=== PATIENT | female | born 1975 | race Caucasian/White ===

== ENCOUNTER 2018-06-04 12:05 | Emergency (ER) | payer OTHER ==
[~2018-06-04] VITALS: Ht 172.7 cm; Wt 90.7 kg
[~2018-06-04 12:05] MED LIST: AMOX TR-K CLV1 EACH PO; ATIVAN2 MG PO; AUGMENTIN 875-1 EACH PO; BACTRIM DS TAB1 EACH PO; CALCIUM500 M1 PO; IBUPROFEN600 MG PO; MAPAP325 MG PO; MULTI VITAMIN1 EACH PO; NICOTINE PATCH1 EAC3 TD; OXYCODON-ACETA1 EAC2 PO; OXYCODONE-ACET1 EAC1 PO; WELLBUTRIN SR150 MG PO; [UNRECOGNIZED DRUG - CODE] PO
[2018-06-04] MEDS ORDERED: KETOROLAC TROME10 MG PO (14:18)
== END 2018-06-04 14:30 | disposition home or self-care (01) ==
LOC: ED 12:05
DX: M94.0 Chondrocostal junction syndrome [Tietze] (principal); F17.200 Nicotine dependence, unspecified, uncomplicated; Z79.891 Long term (current) use of opiate analgesic
CPT/HCPCS: 71101; 96372; 99283; J1885

== ENCOUNTER 2025-04-17 09:38 | Day surgery (SDC) | payer OTHER ==
[~2025-04-17] VITALS: Ht 172.7 cm; Wt 118.0 kg
[~2025-04-17 09:38] MED LIST changes: +IBLOOD GLUCOSE TEST STRIP 1 EA TEST VI PRN; +KETOROLAC TROME10 MG PO; +LACTATED RINGER'S 1,000 ML IV SCH; +LIDOCAINE HCL 1% 5 ML SDV INJ ONE; +PHENTERMINE HCL30 MG PO; +VARENICLINE1 EACH PO
[2025-04-17 10:10] VITALS: BP 112/64
[2025-04-17] MEDS ORDERED: LIDOCAINE HCL 2% 5 ML SDV ONE (11:01)
[2025-04-17] MEDS ORDERED: KETAMINE in NS 50 MG/5 ML SYR ONE (11:20)
--- NOTE | 2025-04-17 11:48 | NUR ---
04/17/25 1148 Radha Corley 1137-PATIENT ARRIVED TO PACU ON 4L NC RR EVEN. PATIENT LAYING LEFT LATERAL ABDOMEN SOFT. REACTIVE TO VERBAL STIMULI PATIENT TALKING. SR. ABDOMEN SOFT IVF INFUSING. 1145-PATIENT AROUSING ASKING "IS BP OK" ALSO STATING " IM HUNGRY" HOB ELEVATED ON RA 95% RR EVEN. ENCOURAGED TO PASS GAS.
[2025-04-17 12:19] VITALS: BP 121/78
--- NOTE | 2025-04-18 09:50 | OR ---
[facility] [address] [place], [place] [address] Signed DATE OF OPERATION: 04/17/2025 SURGEON: Harman Batres DO PREOPERATIVE DIAGNOSIS: Colon cancer screening. POSTOPERATIVE DIAGNOSIS: Colon cancer screening with polyp at 25 cm. PROCEDURE PERFORMED: Colonoscopy with polypectomy at 25 cm. ANESTHESIA: IV sedation. EBL: None. DRAINS: None. COMPLICATIONS: None. DESCRIPTION OF PROCEDURE: The patient was brought to the GI lab, placed in the supine position. After induction of IV sedation, the patient was placed in the left lateral position and padded to the satisfaction of anesthesia. An Olympus video colonoscope was then introduced into the rectal vault. The colon was insufflated and passed forward under direct visualization through the rectosigmoid, sigmoid colon, descending colon, transverse colon, ascending colon and cecum. Ascending colon and cecum were unremarkable. No intrinsic or extrinsic masses were appreciated. The scope was then brought back into the transverse colon. No intrinsic or extrinsic masses were noted. The scope was brought back into the descending colon. No intrinsic or extrinsic masses were appreciated. The scope was then brought back into the sigmoid colon. At approximately 25 cm, broad-based protrusion was noted at the region of the one of the mucosal fold. It seemed to stay elevated throughout insufflation and therefore a biopsy was indicated. The biopsy forceps were then utilized to take biopsies of this polyp at area of 25 cm. They were passed off the field. This was done with the cold biopsy forceps. Satisfactory hemostasis was Electronically Signed By: HARMAN BATRES DO 04/18/25 0950 PATIENT NAME: ARIES OVALLES OPERATIVE REPORT DATE OF : 77 REPORT #: [id number] PHYSICIAN: HARMAN BATRES DO PCP: NO PRIMARY CARE PHYSICIAN REPORT IS CONFIDENTIAL AND NOT TO BE RELEASED WITHOUT AUTHORIZATION [address] [place], [place] [address] Signed maintained. The rest of the sigmoid colon was unremarkable. Rectosigmoid was unremarkable. Colonoscope was removed. The patient tolerated the procedure well and went to recovery room in satisfactory condition. Harman Batres DO RS/MODL /[id number] Copies: ~ Electronically Signed By: HARMAN BATRES DO 04/18/25 0950 PATIENT NAME: ARIES OVALLES OPERATIVE REPORT DATE OF : 77 REPORT #: [id number] PHYSICIAN: HARMAN BATRES DO PCP: NO PRIMARY CARE PHYSICIAN REPORT IS CONFIDENTIAL AND NOT TO BE RELEASED WITHOUT AUTHORIZATION
--- NOTE | 2025-04-21 16:28 | PATH ---
[facility] [address] [facility] [place] [address] Signed SPECIMEN(S): A COLON POLYP, 25 CM SPECIMEN SOURCE: A. COLON POLYP, 25 CM CLINICAL HISTORY: Screening colonoscopy FINAL PATHOLOGIC DIAGNOSIS: Colon polyp at 25 cm: - Polypoid colonic mucosa with slight adenomatous change (one fragment). - Incidental melanosis coli. JVR:[facility] MICROSCOPIC EXAMINATION: Histologic sections of all submitted blocks are examined by light microscopy. These findings, together with the gross examination, support the pathologic diagnosis. GROSS DESCRIPTION: The specimen, labeled and designated "Jerson, colon polyp at 25 cm," is received in formalin and consists of one chacon soft tissue fragment, 0.2 cm. Entirely submitted in (A1). JS (under the direct supervision of a pathologist) The Gross Description was prepared using a voice recognition system. The report was reviewed for accuracy; however, sound-alike word errors, addition and/or deletions may occur. If there is any question about this report, please contact Client Services. PERFORMING LABORATORY: Technical component was performed by [facility], [address] [place] [id number] (CLIA# [id number]). Professional interpretation was performed by [facility], [address] [place] [id number] (CLIA#: [id number]). Diagnostician: Juan R Montague MD Pathologist Electronically Signed 04/21/2025 Copies: PATIENT NAME: ARIES OVALLES PATHOLOGY DATE OF : 77 REPORT #: [id number] PHYSICIAN: [facility] PCP: NO PRIMARY CARE PHYSICIAN REPORT IS CONFIDENTIAL AND NOT TO BE RELEASED WITHOUT AUTHORIZATION [address] [address] Signed ~ PATIENT NAME: ARIES OVALLES PATHOLOGY DATE OF : 77 REPORT #: [id number] PHYSICIAN: [facility] PCP: NO PRIMARY CARE PHYSICIAN REPORT IS CONFIDENTIAL AND NOT TO BE RELEASED WITHOUT AUTHORIZATION
== END 2025-04-17 12:25 | disposition home or self-care (01) ==
LOC: DS 09:38
PROVIDERS: ATTEND Surgery
PROC: 0DBN8ZX Excision of Sigmoid Colon, Via Natural or Artificial Opening Endoscopic, Diagnostic (ICD-10-PCS; principal; 2025-04-17 11:00)
DX: Z12.11 Encounter for screening for malignant neoplasm of colon (principal); D12.5 Benign neoplasm of sigmoid colon; K63.89 Other specified diseases of intestine; F17.210 Nicotine dependence, cigarettes, uncomplicated; Z98.51 Tubal ligation status
CPT/HCPCS: 00812; 36415; 84703; 88305; J2003; J2704; J3490; J7121